=== PATIENT | female | born 1945 | race Caucasian/White ===

== ENCOUNTER → 2016-06-13 | Outpatient (CLI) | payer MEDICARE, OTHER ==
[2016-06-13 09:25] LABS: Basophils # (auto) 0 uL; Basophils % (auto) 0.2 % (0.0-2.0); Eosinophils # (auto) 0 uL; Eosinophils % (auto) 0.1 % (0.0-7.0); Lymphocytes # (auto) 1.2 uL; Lymphocytes % (auto) 42.1 % (10.0-50.0); Mean Corpuscular Hemoglobin 29.4 pg (28.0-32.0); Mean Corpuscular Hgb Conc. 32.5 g/dL (32.0-36.0); Mean Corpuscular Volume 90.3 fL (80.0-100.0); Mean Platelet Volume 8.6 fL (7.4-10.4); Monocytes # (auto) 0.4 uL; Monocytes % (auto) 13.5 % (0.0-12.0); Neutrophils # (auto) 1.3 uL; Neutrophils % (auto) 44.1 % (37.0-80.0); Platelet Count (auto) 206 10^3/uL (140-450); Red Cell Distribution Width 16.2 % (11.6-16.0); White Blood Cell 2.8 10^3/uL (4.4-10.8)
[2016-06-13 09:42] LABS: Urine Bilirubin Negative (Negative); Urine Blood Negative /uL (Negative); Urine Color Yellow (Yellow); Urine Glucose Normal (Normal); Urine Ketone Negative (Negative); Urine Mucus FEW (None Seen); Urine Nitrite Negative (Negative); Urine RBC 1 /hpf (0 - 4); Urine Squamous Epithelial Cell FEW /hpf (<5); Urine Urobilinogen Normal (Negative)
[2016-06-13 09:56] LABS: Albumin 3.5 g/dL (3.4-5.0); Bilirubin, Total 0.4 mg/dL (0.2-1.0); Calcium 8.9 mg/dL (8.5-10.1); Potassium 4.1 mmol/L (3.5-5.1); Total Protein 6.9 g/dL (6.4-8.2)
== END | disposition home or self-care (01) ==
LOC: LAB 07:56
DX: Z00.00 Encounter for general adult medical examination without abnormal findings (principal); M81.0 Age-related osteoporosis without current pathological fracture; E55.9 Vitamin D deficiency, unspecified
CPT/HCPCS: 36415; 80053; 80061; 81001; 82306; 83036; 84443; 85025

== ENCOUNTER → 2017-04-03 | Outpatient (CLI) | payer MEDICARE ==
[~2017-04-03] MED LIST: ASPI81TA27 PO; ATEN100T PO; LEVO25TA6 PO; LISI-646 PO; MELO15TA4 PO; SIMV-13 PO; [UNRECOGNIZED DRUG - CODE] PO; [UNRECOGNIZED DRUG - CODE] PO
[2017-04-03 09:52] LABS: Basophils # (auto) 0 uL; Basophils % (auto) 0.4 % (0.0-2.0); Eosinophils # (auto) 0 uL; Eosinophils % (auto) 0.1 % (0.0-7.0); Hematocrit 47.2 % (36.0-46.0); Hemoglobin 15.8 g/dL (12.2-16.2); Lymphocytes # (auto) 1.1 uL; Mean Corpuscular Hemoglobin 30.5 pg (28.0-32.0); Mean Corpuscular Hgb Conc. 33.6 g/dL (32.0-36.0); Mean Corpuscular Volume 90.7 fL (80.0-100.0); Mean Platelet Volume 8.2 fL (6.9-10.8); Monocytes # (auto) 0.3 uL; Neutrophils # (auto) 1.4 uL; Neutrophils % (auto) 48.5 % (37.0-80.0); Nucleated Red Blood Cells % 0.3 %; Platelet Count (auto) 193 10^3/uL (140-450); Red Cell Distribution Width 14.1 % (11.8-14.3); White Blood Cell 2.9 10^3/uL (4.4-10.8)
[2017-04-03 10:59] LABS: Albumin 3.6 g/dL (3.4-5.0); Bilirubin, Total 0.5 mg/dL (0.2-1.0); Calcium 8.9 mg/dL (8.5-10.1); Potassium 3.9 mmol/L (3.5-5.1); Total Protein 7.1 g/dL (6.4-8.2)
[2017-04-04 06:06] LABS: Rheumatoid Arthritis Factor <10.0 IU/mL (0.0-13.9)
== END | disposition home or self-care (01) ==
LOC: LAB 08:56
DX: I10 Essential (primary) hypertension (principal); I70.0 Atherosclerosis of aorta; E78.00 Pure hypercholesterolemia, unspecified; M06.9 Rheumatoid arthritis, unspecified; D64.9 Anemia, unspecified; Z79.899 Other long term (current) drug therapy
CPT/HCPCS: 36415; 80053; 85025; 85652; 86141; 86200; 86431

== ENCOUNTER 2017-06-07 07:45 | Emergency (ER) | payer MEDICARE ==
[~2017-06-07] VITALS: Ht 162.6 cm; Wt 86.2 kg
[~2017-06-07 07:45] MED LIST changes: -MELO15TA4 PO; +MELO1TAB56 PO
[2017-06-07] MEDS ORDERED: MORPHINE SULFATE 4 MG/ML SYR/VIAL IV ONE (08:45)
[2017-06-07] MEDS ORDERED: ONDANSETRON HCL 4 MG/2 ML VIAL IV ONE (08:45)
[2017-06-07 11:07] LABS: Hematocrit 47.7 % (36.0-46.0); Hemoglobin 16.1 g/dL (12.2-16.2); Mean Corpuscular Hemoglobin 30.6 pg (28.0-32.0); Mean Corpuscular Hgb Conc. 33.8 g/dL (32.0-36.0); Mean Corpuscular Volume 90.6 fL (80.0-100.0); Platelet Count (auto) 283 10^3/uL (140-450); Red Blood Cells 5.26 10^6/uL (4.0-5.20); Red Cell Distribution Width 15.4 % (11.8-14.3); White Blood Cell 2.4 10^3/uL (4.4-10.8)
[2017-06-07 11:16] LABS: Band Neutrophils % (manual) 0; Basophils % (manual) 0 (0.0-2.0); Blast Cells 0; Metamyelocytes % 0; Myelocytes % 0; Promyelocytes % 0; Reactive Lymphocytes 0
[2017-06-07 11:33] LABS: Alanine Aminotransferase 32 U/L (13-56); Albumin 3.4 g/dL (3.4-5.0); Alkaline Phosphatase 148 U/L (45-117); Amylase 36 U/L (25-115); Anion Gap 7 (5-15); Aspartate Aminotransferase 21 U/L (15-37); BUN/Creatinine Ratio 14.1; Bilirubin, Total 0.5 mg/dL (0.2-1.0); Blood Urea Nitrogen 10 mg/dL (7-18); Calcium 8.8 mg/dL (8.5-10.1); Carbon Dioxide 29 mmol/L (21-32); Chloride 103 mmol/L (98-107); GFR African American 105 mL/min; GFR Non-African American 86 mL/min; Glucose 110 mg/dL (74-106); Lipase 102 U/L (73-393); Potassium 3.3 mmol/L (3.5-5.1); Sodium 139 mmol/L (136-145); Total Protein 7.2 g/dL (6.4-8.2)
[2017-06-07] MEDS ORDERED: POTASSIUM CHL 20 Meq TABLET PO ONE (12:15)
[2017-06-07 12:24] VITALS: BP 159/92
[2017-06-07] MEDS ORDERED: MORPHINE SULF INJ 2 MG/ML SYRINGE 1ML ONE (12:26)
[2017-06-07 12:57] LABS: Eosinophils % (manual) 1 (0-7); Lymphocytes % (manual) 40 (10.0-50.0); Monocytes % (manual) 7 (0-12)
== END 2017-06-07 13:14 | disposition home or self-care (01) ==
LOC: ER 07:45 → EDBD 07:45 → ER 13:14
DX: S30.1XXA Contusion of abdominal wall, initial encounter (principal); I10 Essential (primary) hypertension; Z79.82 Long term (current) use of aspirin; Z88.1 Allergy status to other antibiotic agents; Z90.49 Acquired absence of other specified parts of digestive tract; Z88.2 Allergy status to sulfonamides; Z88.8 Allergy status to other drugs, medicaments and biological substances; W19.XXXA Unspecified fall, initial encounter; Y93.89 Activity, other specified; Y92.89 Other specified places as the place of occurrence of the external cause; Y99.8 Other external cause status
CPT/HCPCS: 36415; 71045; 74176; 80053; 82150; 83690; 84484; 85007; 85027; 94761; 96374; 96375; 99285; J2270; J2405; 93005

== ENCOUNTER → 2017-06-11 | Outpatient (CLI) | payer MEDICARE ==
[2017-06-11 09:03] LABS: Hematocrit 44.7 % (36.0-46.0); Hemoglobin 15.2 g/dL (12.2-16.2); Mean Corpuscular Hemoglobin 30.9 pg (28.0-32.0); Mean Corpuscular Volume 91.1 fL (80.0-100.0); Platelet Count (auto) 236 10^3/uL (140-450); Red Blood Cells 4.91 10^6/uL (4.0-5.20); Red Cell Distribution Width 16.1 % (11.8-14.3); White Blood Cell 2.5 10^3/uL (4.4-10.8)
[2017-06-11 09:07] LABS: Band Neutrophils % (manual) 0
[2017-06-11 09:08] LABS: Basophils % (manual) 0 (0.0-2.0); Blast Cells 0; Eosinophils % (manual) 0 (0-7); Metamyelocytes % 0; Myelocytes % 0; Promyelocytes % 0
[2017-06-11 09:46] LABS: Albumin 3.2 g/dL (3.4-5.0); Bilirubin, Total 0.3 mg/dL (0.2-1.0); Potassium 3.8 mmol/L (3.5-5.1); Total Protein 6.8 g/dL (6.4-8.2)
[2017-06-11 09:56] LABS: Lymphocytes % (manual) 46 (10.0-50.0); Monocytes % (manual) 15 (0-12); Reactive Lymphocytes 3
== END | disposition home or self-care (01) ==
LOC: LAB 08:24
PROVIDERS: ATTEND Physician Assistant
DX: I10 Essential (primary) hypertension (principal); M79.7 Fibromyalgia; E78.5 Hyperlipidemia, unspecified; D72.819 Decreased white blood cell count, unspecified
CPT/HCPCS: 36415; 80053; 80061; 84443; 85007; 85027

== ENCOUNTER 2018-07-05 13:09 | Emergency (ER) | payer MEDICARE ==
[~2018-07-05] VITALS: Ht 162.6 cm; Wt 87.1 kg
[2018-07-05 16:08] LABS: Albumin 3.8 g/dL (3.4-5.0); Calcium 8.6 mg/dL (8.5-10.1); Potassium 3.4 mmol/L (3.5-5.1)
[2018-07-05 16:11] LABS: BUN/Creatinine Ratio 13.9; Bilirubin, Total 0.4 mg/dL (0.2-1.0); Total Protein 7.5 g/dL (6.4-8.2)
[2018-07-05 16:40] LABS: Basophils # (auto) 0 uL; Eosinophils # (auto) 0 uL; Eosinophils % (auto) 0.3 % (0.0-7.0); Hematocrit 45.3 % (36.0-46.0); Hemoglobin 15.1 g/dL (12.2-16.2); Lymphocytes # (auto) 1.5 uL; Lymphocytes % (auto) 29.4 % (10.0-50.0); Mean Corpuscular Hemoglobin 28.8 pg (28.0-32.0); Mean Corpuscular Hgb Conc. 33.3 g/dL (32.0-36.0); Mean Corpuscular Volume 86.6 fL (80.0-100.0); Monocytes # (auto) 0.7 uL; Monocytes % (auto) 14.2 % (0.0-12.0); Neutrophils # (auto) 2.9 uL; Neutrophils % (auto) 56.1 % (37.0-80.0); Nucleated Red Blood Cells % 0.1 %; Platelet Count (auto) 198 10^3/uL (140-450); Red Blood Cells 5.23 10^6/uL (4.0-5.20); White Blood Cell 5.2 10^3/uL (4.4-10.8)
[2018-07-05 17:40] VITALS: BP 158/92
== END 2018-07-05 17:55 | disposition home or self-care (01) ==
LOC: ER 13:11
DX: B02.9 Zoster without complications (principal); I10 Essential (primary) hypertension; K21.9 Gastro-esophageal reflux disease without esophagitis; Z86.39 Personal history of other endocrine, nutritional and metabolic disease; Z88.1 Allergy status to other antibiotic agents; Z88.2 Allergy status to sulfonamides; Z88.6 Allergy status to analgesic agent; Z88.8 Allergy status to other drugs, medicaments and biological substances
CPT/HCPCS: 36415; 80053; 85025

== ENCOUNTER 2023-01-04 11:33 | Inpatient (IN) | payer MEDICARE ==
[~2023-01-04] VITALS: Ht 162.6 cm; Wt 86.6 kg
[~2023-01-04 11:33] MED LIST changes: +ASPI-543 PO; -ASPI81TA27 PO; -LISI-646 PO; +LISI20TA56 PO; +MELO-335 PO; -MELO1TAB56 PO; -SIMV-13 PO; +SIMV40TA18 PO
[2023-01-04] MEDS ORDERED: SODIUM CHLORIDE 0.9% 1,000 ML IVB ONE (12:15)
[2023-01-04 12:33] VITALS: PULSE 50; RESP 11; O2SAT 96
[2023-01-04 13:30] LABS: Basophils # (auto) 0 10 ^3/uL (0-0.2); Basophils % (auto) 0.4 % (0.0-2.0); Eosinophils # (auto) 0 10 ^3/uL (0-0.8); Eosinophils % (auto) 0.6 % (0.0-7.0); Hematocrit 44.9 % (36.0-46.0); Hemoglobin 15.1 g/dL (12.2-16.2); Lymphocytes # (auto) 1.3 10 ^3/uL (0.4-5.4); Lymphocytes % (auto) 18.4 % (10.0-50.0); Mean Corpuscular Hemoglobin 32.1 pg (28.0-32.0); Mean Corpuscular Hgb Conc. 33.7 g/dL (32.0-36.0); Mean Corpuscular Volume 95.1 fL (80.0-100.0); Monocytes # (auto) 0.8 10 ^3/uL (0-1.3); Monocytes % (auto) 11.9 % (0.0-12.0); Neutrophils # (auto) 4.7 10 ^3/uL (1.6-8.6); Neutrophils % (auto) 68.7 % (37.0-80.0); Nucleated Red Blood Cells % 0.1 %; Red Blood Cells 4.72 10^6/uL (4.0-5.20); Red Cell Distribution Width 13.5 % (11.8-14.3); White Blood Cell 6.8 10^3/uL (4.4-10.8)
[2023-01-04 13:56] LABS: Albumin 3.2 g/dL (3.4-5.0); Calcium 8.1 mg/dL (8.5-10.1); Magnesium 2.3 mg/dL (1.6-2.6); Potassium 4.3 mmol/L (3.5-5.1)
[2023-01-04 14:03] LABS: Bilirubin, Total 0.5 mg/dL (0.2-1.0); Total Protein 5.7 g/dL (6.4-8.2)
[2023-01-04] MEDS ORDERED: NITROGLYCERIN 0.4 MG SL TAB SL PRN (15:00)
[2023-01-04] MEDS ORDERED: SODIUM CHLORIDE 0.9% 1,000 ML IV SCH (15:00)
[2023-01-04] MEDS ORDERED: ONDANSETRON HCL 4 MG/2 ML VIAL IV PRN (15:00)
[2023-01-04] MEDS ORDERED: MECLIZINE HCL 25 MG TAB PO PRN (15:00)
[2023-01-04] MEDS ORDERED: MORPHINE SULFATE INJ 2 MG/ml SYRG IV PRN (15:00)
[2023-01-04] MEDS ORDERED: PANTOPRAZOLE 40 MG/10 ML VIAL INJ IV ONE (15:15)
[2023-01-04 16:41] LABS: Cholesterol 127 mg/dL (< 200); HDL Cholesterol 56 mg/dL (40-59); LDL Cholesterol 58 mg/dL (< 100); Triglycerides 135 mg/dL (< 150)
[2023-01-04] MEDS ORDERED: SOD CHL 0.45% 1,000 ML IV SCH (17:00)
[2023-01-04] MEDS ORDERED: GLUCAGON EMERG KIT 1mg/1ml IV ONE (17:15)
[2023-01-04] MEDS ORDERED: hydrALAZINE HCL 20 MG/ML VL IV ONE (17:15)
[2023-01-04] MEDS ORDERED: LACTATED RINGER'S 1,000 ML IV SCH (17:30)
[2023-01-04] MEDS: SOD CHL 0.45% 1,000 ML IV SCH (18:10)
[2023-01-04] MEDS: hydrALAZINE HCL 20 MG/ML VL IV PRN (19:00)
[2023-01-04 19:30] VITALS: PULSE 75; RESP 75; O2SAT 94
[2023-01-04] MEDS: ATORVASTATIN 20 MG TAB PO SCH ×2 (22:05→22:46)
[2023-01-04 22:23] VITALS: BP 133/61; PULSE 65; RESP 18; TEMP 98.8; O2SAT 96
[2023-01-05] VITALS (8 sets, daily range): BP systolic 135–165; BP diastolic 64–77; PULSE 59–69; RESP 16–20; TEMP 97.9–98.9; O2SAT 93–100
[2023-01-05] MEDS: SOD CHL 0.45% 1,000 ML IV SCH ×2 (03:56→20:25)
[2023-01-05] MEDS: LEVOTHYROXINE SODIUM 25 MCG TAB PO SCH (06:17)
[2023-01-05 06:35] LABS: Potassium 4.1 mmol/L (3.5-5.1)
[2023-01-05 06:38] LABS: BUN/Creatinine Ratio 18.5 (10.0-20.0); Calcium 8.3 mg/dL (8.5-10.1); Total Protein 5.7 g/dL (6.4-8.2)
[2023-01-05 06:40] LABS: Bilirubin, Total 0.6 mg/dL (0.2-1.0)
[2023-01-05 07:16] LABS: Basophils # (auto) 0 10 ^3/uL (0-0.2); Basophils % (auto) 0.4 % (0.0-2.0); Eosinophils # (auto) 0 10 ^3/uL (0-0.8); Eosinophils % (auto) 0.5 % (0.0-7.0); Hematocrit 41.7 % (36.0-46.0); Hemoglobin 14.3 g/dL (12.2-16.2); Lymphocytes # (auto) 1.6 10 ^3/uL (0.4-5.4); Lymphocytes % (auto) 24.8 % (10.0-50.0); Mean Corpuscular Hemoglobin 32.5 pg (28.0-32.0); Mean Corpuscular Hgb Conc. 34.4 g/dL (32.0-36.0); Mean Corpuscular Volume 94.5 fL (80.0-100.0); Monocytes # (auto) 0.9 10 ^3/uL (0-1.3); Monocytes % (auto) 14.1 % (0.0-12.0); Neutrophils % (auto) 60.2 % (37.0-80.0); Nucleated Red Blood Cells % 0.4 %; Red Blood Cells 4.41 10^6/uL (4.0-5.20); Red Cell Distribution Width 13.6 % (11.8-14.3); White Blood Cell 6.6 10^3/uL (4.4-10.8)
[2023-01-05] MEDS ORDERED: LISINOPRIL 20 MG TAB PO SCH (10:00)
[2023-01-05] MEDS ORDERED: PANTOPRAZOLE 40 MG/10 ML VIAL INJ IV SCH (10:00)
[2023-01-05] MEDS ORDERED: ENOXAPARIN SOD 40 MG/0.4 ML SYRINGE SC SCH (10:00)
[2023-01-05] MEDS ORDERED: PANTOPRAZOLE 40 MG TAB PO SCH (10:00)
[2023-01-05] MEDS ORDERED: ASPirin-EC 81 mg tab PO SCH (10:00)
[2023-01-05] MEDS: ACETAMINOPHEN 325 MG TAB PO PRN (14:32)
[2023-01-05] MEDS ORDERED: MULT-1018 PO (17:24)
[2023-01-05] MEDS ORDERED: MELO-335 PO (17:24)
[2023-01-05] MEDS: IBUPROFEN 600 MG TAB PO PRN (18:57)
[2023-01-05 19:16] LABS: Urine Bacteria NONE SEEN /hpf (None Seen); Urine Blood Negative /uL (Negative); Urine Specific Gravity 1.006 (1.001-1.035); Urine WBC 1 /hpf (0 - 5)
[2023-01-05 20:54] LABS: Alcohol, Urine < 3.0 mg/dL (0-10); Amphetamine Screen, Urine NEGATIVE (NEGATIVE); Barbiturate Scree,Urine NEGATIVE (NEGATIVE); Benzodiazephine Screen, Urine NEGATIVE (NEGATIVE); Cannabinoid Screen, Urine NEGATIVE (NEGATIVE); Cocaine Screen, Urine NEGATIVE (NEGATIVE); Opiate Scree,Urine NEGATIVE (NEGATIVE); Phencyclidine Screen, Urine NEGATIVE (NEGATIVE)
[2023-01-06] VITALS (7 sets, daily range): BP systolic 136–158; BP diastolic 63–83; PULSE 69–86; RESP 16–19; TEMP 98.2–98.9; O2SAT 95–97
[2023-01-06] MEDS: LEVOTHYROXINE SODIUM 25 MCG TAB PO SCH (05:44)
[2023-01-06 06:31] LABS: Basophils # (auto) 0 10 ^3/uL (0-0.2); Basophils % (auto) 0.5 % (0.0-2.0); Eosinophils # (auto) 0.1 10 ^3/uL (0-0.8); Eosinophils % (auto) 1.1 % (0.0-7.0); Hematocrit 42.7 % (36.0-46.0); Hemoglobin 14.6 g/dL (12.2-16.2); Lymphocytes # (auto) 1.1 10 ^3/uL (0.4-5.4); Lymphocytes % (auto) 20.9 % (10.0-50.0); Mean Corpuscular Hemoglobin 32.4 pg (28.0-32.0); Mean Corpuscular Hgb Conc. 34.2 g/dL (32.0-36.0); Mean Corpuscular Volume 94.8 fL (80.0-100.0); Monocytes # (auto) 0.6 10 ^3/uL (0-1.3); Monocytes % (auto) 11.2 % (0.0-12.0); Neutrophils # (auto) 3.5 10 ^3/uL (1.6-8.6); Neutrophils % (auto) 66.3 % (37.0-80.0); Nucleated Red Blood Cells % 0.1 %; Red Cell Distribution Width 13.5 % (11.8-14.3); White Blood Cell 5.3 10^3/uL (4.4-10.8)
[2023-01-06 06:50] LABS: INR 0.98 (0.9-1.15); Partial Thromboplastin Time 25.3 SEC (24.5-34.5)
[2023-01-06 06:53] LABS: Calcium 8.8 mg/dL (8.5-10.1)
[2023-01-06 06:56] LABS: BUN/Creatinine Ratio 14.1 (10.0-20.0)
[2023-01-06] MEDS: hydrALAZINE HCL 20 MG/ML VL IV PRN ×2 (07:03→08:35)
[2023-01-06] MEDS ORDERED: LOPERAMIDE HCL 2 MG CAP/TAB PO ONE (08:30)
[2023-01-06] MEDS ORDERED: PANTOPRAZOLE 40 MG/10 ML VIAL INJ IV ONE (08:30)
[2023-01-06] MEDS: IBUPROFEN 600 MG TAB PO PRN ×2 (08:34→17:33)
[2023-01-06] MEDS: SOD CHL 0.45% 1,000 ML IV SCH (09:24)
[2023-01-06] MEDS ORDERED: LORazepam 2MG/ML-1ML VIAL IV PRN (11:00)
[2023-01-06] MEDS: LISINOPRIL 20 MG TAB PO SCH (11:29)
[2023-01-06] MEDS: ACETAMINOPHEN 325 MG TAB PO PRN (11:42)
[2023-01-06] MEDS: ATORVASTATIN 20 MG TAB PO SCH (21:30)
[2023-01-07] MEDS: LEVOTHYROXINE SODIUM 25 MCG TAB PO SCH (06:10)
[2023-01-07 08:00] VITALS: PULSE 80; RESP 18
[2023-01-07 08:31] LABS: Basophils # (auto) 0 10 ^3/uL (0-0.2); Basophils % (auto) 0.9 % (0.0-2.0); Eosinophils # (auto) 0 10 ^3/uL (0-0.8); Eosinophils % (auto) 1.1 % (0.0-7.0); Hematocrit 42.7 % (36.0-46.0); Hemoglobin 14.6 g/dL (12.2-16.2); Lymphocytes # (auto) 1.1 10 ^3/uL (0.4-5.4); Lymphocytes % (auto) 25.3 % (10.0-50.0); Mean Corpuscular Hemoglobin 32.1 pg (28.0-32.0); Mean Corpuscular Hgb Conc. 34.2 g/dL (32.0-36.0); Mean Corpuscular Volume 93.8 fL (80.0-100.0); Monocytes # (auto) 0.5 10 ^3/uL (0-1.3); Monocytes % (auto) 10.8 % (0.0-12.0); Neutrophils # (auto) 2.7 10 ^3/uL (1.6-8.6); Neutrophils % (auto) 61.9 % (37.0-80.0); Nucleated Red Blood Cells % 0.2 %; Red Blood Cells 4.56 10^6/uL (4.0-5.20); Red Cell Distribution Width 13.6 % (11.8-14.3); White Blood Cell 4.4 10^3/uL (4.4-10.8)
[2023-01-07 08:47] LABS: BUN/Creatinine Ratio 11.8 (10.0-20.0); Calcium 8.6 mg/dL (8.5-10.1); Potassium 3.7 mmol/L (3.5-5.1)
[2023-01-07] MEDS: PANTOPRAZOLE 40 MG/10 ML VIAL INJ IV SCH (08:58)
[2023-01-07] MEDS: LISINOPRIL 20 MG TAB PO SCH (08:59)
[2023-01-07] MEDS: amLODIPine BESYLATE 5 MG TAB PO SCH (09:00)
[2023-01-07] MEDS: IBUPROFEN 600 MG TAB PO PRN ×2 (12:04→20:18)
[2023-01-07 13:30] VITALS: BP 130/82; PULSE 76; RESP 16; TEMP 98.2; O2SAT 95
[2023-01-07 16:59] VITALS: BP 139/68; PULSE 75; RESP 14; TEMP 98.2; O2SAT 94
[2023-01-07 20:00] VITALS: BP 150/81; PULSE 78; PULSE 85; RESP 18; TEMP 98
[2023-01-07] MEDS: ATORVASTATIN 20 MG TAB PO SCH (21:10)
[2023-01-07 22:00] VITALS: BP 150/81; PULSE 78; RESP 18; TEMP 98; O2SAT 96
[2023-01-07] MEDS ORDERED: LORATADINE 10 MG TAB PO SCH (22:00)
[2023-01-08] MEDS: IBUPROFEN 600 MG TAB PO PRN (04:36)
[2023-01-08 05:00] VITALS: BP_SYST 146; BP_SYST 150; BP_SYST 158; BP_DIAS 78; BP_DIAS 81; BP_DIAS 91; PULSE 114; PULSE 72; PULSE 91; RESP 16; TEMP 98.2; O2SAT 94
[2023-01-08] MEDS: LEVOTHYROXINE SODIUM 25 MCG TAB PO SCH (06:30)
[2023-01-08] MEDS: hydrALAZINE HCL 20 MG/ML VL IV PRN (06:32)
[2023-01-08 07:49] LABS: Basophils # (auto) 0 10 ^3/uL (0-0.2); Basophils % (auto) 0.6 % (0.0-2.0); Eosinophils # (auto) 0.1 10 ^3/uL (0-0.8); Eosinophils % (auto) 1.5 % (0.0-7.0); Hematocrit 42.5 % (36.0-46.0); Hemoglobin 14.7 g/dL (12.2-16.2); Lymphocytes # (auto) 0.9 10 ^3/uL (0.4-5.4); Lymphocytes % (auto) 25.5 % (10.0-50.0); Mean Corpuscular Hemoglobin 32.4 pg (28.0-32.0); Mean Corpuscular Hgb Conc. 34.7 g/dL (32.0-36.0); Mean Corpuscular Volume 93.5 fL (80.0-100.0); Monocytes # (auto) 0.6 10 ^3/uL (0-1.3); Neutrophils # (auto) 2.1 10 ^3/uL (1.6-8.6); Neutrophils % (auto) 55.4 % (37.0-80.0); Nucleated Red Blood Cells % 0.4 %; Red Blood Cells 4.55 10^6/uL (4.0-5.20); Red Cell Distribution Width 13.8 % (11.8-14.3); White Blood Cell 3.7 10^3/uL (4.4-10.8)
[2023-01-08 08:00] VITALS: PULSE 106; PULSE 98; RESP 19; O2SAT 97
[2023-01-08 08:01] LABS: Calcium 8.4 mg/dL (8.5-10.1); Potassium 3.6 mmol/L (3.5-5.1)
[2023-01-08 08:04] LABS: BUN/Creatinine Ratio 13.3 (10.0-20.0)
[2023-01-08 09:00] VITALS: BP_SYST 115; BP_SYST 134; BP_SYST 139; BP_DIAS 108; BP_DIAS 90; BP_DIAS 91; PULSE 120; PULSE 89; PULSE 99; RESP 18; RESP 20; TEMP 97.6; TEMP 98.1; TEMP 99.2; O2SAT 92; O2SAT 96; O2SAT 97
[2023-01-08] MEDS: PANTOPRAZOLE 40 MG/10 ML VIAL INJ IV SCH (09:22)
[2023-01-08] MEDS: LISINOPRIL 20 MG TAB PO SCH (09:23)
[2023-01-08] MEDS: amLODIPine BESYLATE 5 MG TAB PO SCH (09:24)
[2023-01-08] MEDS ORDERED: ATEN25TA PO (11:20)
[2023-01-08] MEDS ORDERED: LISI40TA16 PO (11:20)
[2023-01-08] MEDS ORDERED: AML5T PO (11:20)
[2023-01-08 13:00] VITALS: BP_SYST 113; BP_SYST 136; BP_SYST 150; BP_DIAS 69; BP_DIAS 74; BP_DIAS 97; PULSE 108; PULSE 133; PULSE 81; RESP 18; RESP 20; TEMP 97.9; TEMP 99.1; TEMP 99.5; O2SAT 95
[2023-01-08 13:38] VITALS: BP 155/78; TEMP 36.6
== END 2023-01-08 14:15 | disposition home or self-care (01) | DRG 640 ==
LOC: EDBD 11:33 → ER 11:33 → TELE 14:52 → TELE-WESTW 21:40
PROVIDERS: ADMIT Internal Medicine; ATTEND Student in an Organized Health Care Education/Training Program
DX: E86.0 Dehydration (principal); G93.41 Metabolic encephalopathy; J96.01 Acute respiratory failure with hypoxia; E46 Unspecified protein-calorie malnutrition; N17.9 Acute kidney failure, unspecified; K62.5 Hemorrhage of anus and rectum; E66.01 Morbid (severe) obesity due to excess calories; I10 Essential (primary) hypertension; K21.9 Gastro-esophageal reflux disease without esophagitis; E03.9 Hypothyroidism, unspecified; R00.1 Bradycardia, unspecified; G89.29 Other chronic pain; M54.9 Dorsalgia, unspecified; Z20.822 Contact with and (suspected) exposure to COVID-19; H53.8 Other visual disturbances; E78.5 Hyperlipidemia, unspecified; K44.9 Diaphragmatic hernia without obstruction or gangrene; Z80.52 Family history of malignant neoplasm of bladder; Z88.1 Allergy status to other antibiotic agents; Z88.2 Allergy status to sulfonamides; Z88.5 Allergy status to narcotic agent; Z68.32 Body mass index [BMI] 32.0-32.9, adult; Z82.49 Family history of ischemic heart disease and other diseases of the circulatory system; Z86.73 Personal history of transient ischemic attack (TIA), and cerebral infarction without residual deficits; Z90.49 Acquired absence of other specified parts of digestive tract; Z98.49 Cataract extraction status, unspecified eye
CPT/HCPCS: 36415; 70450; 71045; 74176; 80048; 80053; 80061; 80307; 81001; 82270; 83605; 83735; 84443; 84484; 85025; 85379; 85610; 85730; 87040; 87177; 87426; 87493; 93005; 93306; 93886; C9113; G0378; J2405